=== PATIENT | female | born 2000 | race Hispanic/Latino ===

== ENCOUNTER 2018-08-24 21:39 | Emergency (ER) | payer BC ==
[2018-08-25] MEDS ORDERED: Albuterol-Ipratrop 3 mg / 0.5 (3 ml) UD IH STA (00:07)
[2018-08-25] MEDS ORDERED: Naproxen 500 MG TAB PO ONE ×2 (00:07→00:16)
--- NOTE | 2018-08-25 00:15 | ED PDOC ---
HPI: General Adult Time Seen by Provider: 08/24/18 23:43 Chief Complaint (Nursing): Allergic Reaction Chief Complaint (Provider): smoke exposure History Per: Patient History/Exam Limitations: no limitations Onset/Duration Of Symptoms: Days (2) Current Symptoms Are (Timing): Still Present Additional Complaint(s): 18 y/o female presents for evaluation of exposure to cigarette smoke x 2 days. Patient states whenever she around cigarette smoke her eyes burn and tear, her throat gets dry and scratchy, and she begins to cough. Patient states she is visiting the area for work and stays with roommates who smoke in the apartment, but has not asked them to stop smoking in the apartment. Denies dizziness, nausea/vomiting, difficulty swallowing, chest pain, shortness of breath, palpitations, rash. Past Medical History Reviewed: Historical Data, Nursing Documentation, Vital Signs Vital Signs: Last Vital Signs Temp 98.2 F 08/24/18 22:45 Pulse 111 H 08/24/18 22:45 Resp 16 08/24/18 22:45 BP 124/78 08/24/18 22:45 Pulse Ox 100 08/24/18 22:45 - Medical History PMH: Hypothyroidism, Migraine - Surgical History Surgical History: No Surg Hx - Family History Family History: States: No Known Family Hx - Living Arrangements Living Arrangements: With Friends/Others - Home Medications Home Medications: Ambulatory Orders Medication Instructions Recorded RX: Albuterol HFA [Ventolin HFA 90 1 puff IH Q4 PRN #1 inh 08/25/18 mcg/actuation (8 g)] - Allergies Allergies/Adverse Reactions: Allergies Allergy/AdvReac Type Severity Reaction Status Date / Time tree nut Allergy ANAPHYLAXIS Verified 08/24/18 22:48 Review of Systems ROS Statement: Except As Marked, All Systems Reviewed And Found Negative Eyes: Positive for: Redness ENT: Positive for: Throat Pain Respiratory: Positive for: Cough Physical Exam - Reviewed Nursing Documentation Reviewed: Yes Vital Signs Reviewed: Yes - Physical Exam Appears: Positive for: Well, Non-toxic, No Acute Distress Head Exam: Positive for: ATRAUMATIC, NORMAL INSPECTION, NORMOCEPHALIC Skin: Positive for: Normal Color Eye Exam: Positive for: Normal appearance, EOMI, PERRL. Negative for: Periorbital swelling, Periorbital tenderness, Conjunctival injection ENT: Positive for: Normal ENT Inspection Cardiovascular/Chest: Positive for: Regular Rate, Rhythm Respiratory: Positive for: Normal Breath Sounds Gastrointestinal/Abdominal: Positive for: Normal Exam Back: Positive for: Normal Inspection Extremity: Positive for: Normal ROM Neurologic/Psych: Positive for: Alert, Oriented (x3) - ECG O2 Sat by Pulse Oximetry: 100 - Progress ED Course And Treament: -upreg -duoneb -naproxen PO -benadryl PO On re-eval, patient reports improvement of symptoms Patient educated on findings, discharged with rx Albuterol HFA and instructions on symptomatic treatment (visine, anti-histamines PRN) Patient was advised to avoid smoke-filled environment Follow up with PMD within 2-3 days Return precautions Disposition - Clinical Impression Clinical Impression: Second hand smoke exposure, Bronchospasm, Irritation of both eyes - Patient ED Disposition Is Patient to be Admitted: No Counseled Patient/Family Regarding: Diagnosis, Need For Followup, Rx Given - Disposition Disposition: Routine/Home Disposition Time: 01:35 Condition: IMPROVED Prescriptions: RX: Albuterol HFA [Ventolin HFA 90 mcg/actuation (8 g)] 1 puff IH Q4 PRN #1 inh PRN Reason: Shortness Of Breath Instructions: Dangers of Secondhand Smoke Forms: [employer] (Romansh)
[2018-08-25] MEDS ORDERED: Albuterol-Ipratrop 3 mg / 0.5 (3 ml) UD ONE (00:16)
[2018-08-25 02:05] VITALS: BP 122/71; PULSE 102; RESP 20; TEMP 98.3; O2SAT 99
== END 2018-08-25 02:04 | disposition home or self-care (01) ==
LOC: H.ER 21:39
DX: Z77.22 Contact with and (suspected) exposure to environmental tobacco smoke (acute) (chronic) (principal); J98.01 Acute bronchospasm; H57.9 Unspecified disorder of eye and adnexa; E03.9 Hypothyroidism, unspecified